=== PATIENT | female | born 1960 | race Caucasian/White ===

== ENCOUNTER 2019-03-07 06:28 | Day surgery (SDC) | payer MEDICAID, OTHER ==
[2019-03-07] MEDS ORDERED: hydrALAZINE HCL 20 MG/1 ML ONE (10:16)
[2019-03-07] MEDS ORDERED: fentaNYL CITRATE/PF 100 MCG/2 ML INJ. ONE (10:30)
[2019-03-09 09:20] VITALS: BP 181/92
--- NOTE | 2019-04-04 12:25 | Operative Note ---
PREOPERATIVE DIAGNOSIS: 1. Morbid obesity. 2. Hypertension. 3. Hyperlipidemia. 4. Gastroesophageal reflux disease. POSTOPERATIVE DIAGNOSIS: 1. Morbid obesity. 2. Hypertension. 3. Hyperlipidemia. 4. Gastroesophageal reflux disease. PROCEDURES PERFORMED: 1. Laparoscopic vertical sleeve gastrectomy. 2. Upper gastrointestinal endoscopy. SURGEON: Errol Elizalde M.D. INDICATIONS FOR PROCEDURE: Ms. Mar is a 59-year-old female who presented with features of morbid obesity. She was noted to have a weight of 262 pounds with a BMI of 45.8 with the above-listed comorbidities. The patient was advised laparoscopic vertical sleeve gastrectomy and possible hiatal hernia repair. The patient showed understanding and agreed to proceed. DESCRIPTION OF PROCEDURE: After explaining to the patient in detail and informed consent was obtained, the patient was identified in the preoperative holding area. The patient was transferred to the operating room and was placed in supine position. Sequential compressive devices were placed for DVT prophylaxis. Preoperative antibiotics were given. After induction of anesthesia, the abdomen was prepped and draped in a sterile fashion. Through a left upper quadrant 1-cm incision, and using Optiview technique, the peritoneal cavity was entered and pneumoperitoneum was created. Thereafter, under direct vision, another 5-mm trocar was placed in the left midabdomen and another 15-mm trocar was placed in the right midabdomen. Through a 1-cm incision in the right subcostal region, another 5-mm trocar was placed. Through a 1-cm incision in the epigastrium, a Noe retractor was introduced and the left lobe of the liver was retracted. On initial inspection, the patient was noted to have no evidence of hiatal hernia. I took down the gastroepiploic vessels using a LigaSure. This was continued superiorly. The short gastric vessels were taken down. The gastrophrenic ligament was divided and the Angle of His was mobilized. The posterior attachments of the stomach on the pancreas were released. Distally, the gastroepiploic vessels were taken down up to about 4 cm proximal to the pylorus. At this point, a #38 [place] Bougie was introduced into the stomach and was placed along the lesser curve. The stomach was then divided in a vertical fashion with multiple Endo MARIELLA Covidien Black Load Staplers. The first firing was directed outwards towards the greater curvature. Subsequent firings were directed towards the Angle of His to create a loose sleeve around the #38 [place] bougie. The bougie was then removed and an upper GI endoscopy was performed at this point. The scope was introduced into the esophagus and was gradually advanced into the stomach. The GE junction appeared normal. The sleeve size appeared normal. No evidence of any active bleeding was noted. The stomach was insufflated with air and irrigation of fluid along the staple line revealed no evidence of air leak. The stomach was then suctioned out and the scope was removed. Absolute hemostasis was ensured. Thorough saline irrigation was given. The Noe retractor was removed. Approximately 10 mL of a lidocaine- Marcaine mix was instilled under the left hemidiaphragm. The sleeve gastrectomy specimen was removed. The abdomen was then deflated. The incisions were closed with 4-0 Monocryl. Dermabond was applied. Approximately 10 mL of a lidocaine- Marcaine mix was injected into all the incisions. The patient was awakened from anesthesia and was transferred to the recovery room in stable condition. ESTIMATED BLOOD LOSS: Approximately 25 mL. CONDITION OF THE PATIENT: Stable. FLUIDS GIVEN: Per Anesthesia note. SPECIMEN(S) SENT: Sleeve gastrectomy specimen. COMPLICATIONS: None. ANESTHESIA: General. Errol Elizalde M.D. SID/wendi (Please copy [facility] provider when applicable) Job #[id number] CHRISTELLE
== END 2019-03-07 10:50 | disposition other institution (70) ==
LOC: OPSURG 06:28
PROVIDERS: ATTEND Surgery
DX: E66.01 Morbid (severe) obesity due to excess calories (principal); K21.9 Gastro-esophageal reflux disease without esophagitis; I10 Essential (primary) hypertension; E78.5 Hyperlipidemia, unspecified; Z68.42 Body mass index [BMI] 45.0-49.9, adult
CPT/HCPCS: 43235; 43775; 88305; J0360; J3010